=== PATIENT | female | born 1940 | race Caucasian/White ===

== ENCOUNTER 2021-03-13 21:01 | Inpatient (IN) | payer OTHER ==
[~2021-03-13] VITALS: Ht 180.3 cm; Wt 68.9 kg
[~2021-03-13 21:01] MED LIST: ALBUTEROL2.5 MG/3 M INH; ALLEGRA ALLERG180 MG PO; AMOX TR-K CLV1 EAC4 PO; CALTRATE 600 +1 EACH PO; CO Q-10100 MG PO; DOCUSATE SODIU100 MG PO; ECOTRIN81 MG PO; ENTRESTO 24 MG1 EACH PO; FISH OIL 1,0001 EACH PO; FUROSEMIDE40 MG PO; GLUCOTROL5 MG PO; IMDUR ER TAB 3030 MG PO; KLONOPIN0.5 MG PO; LANTUS100 UNIT/1 SQ; LASIX TAB 20 MG20 MG PO; LASIX20 MG PO; LOPRESSOR 25 MG25 MG PO; LOPRESSOR50 MG PO; NITROSTAT0.3 MG SL; NOVOLIN 70100 UNIT/1 SQ; OZEMPIC0.25 MG/0. SC; SYNTHROID150 MCG PO; TOPROL XL100 MG PO; ZANTAC 150 MG150 MG PO; ZESTRIL30 MG PO; ZOLOFT100 MG PO
[2021-03-13 22:51] LABS: HEMOGLOBIN 9.2 gm/dl (12.3-15.3); RED BLOOD COUNT 3.05 M/UL (4.00-5.10)
[2021-03-13 23:21] LABS: WHITE BLOOD COUNT 1.1 K/UL (4.5-11.0)
[2021-03-13 23:24] LABS: BUN/CREATININE RATIO 18 (0-10)
[2021-03-14] MEDS ORDERED: MIRAPEX1 MG PO (04:45)
[2021-03-14] MEDS ORDERED: NEURONTIN400 MG PO (04:47)
[2021-03-14 05:05] LABS: HEMOGLOBIN 8.5 gm/dl (12.3-15.3); RED BLOOD COUNT 2.84 M/UL (4.00-5.10)
[2021-03-14 05:37] LABS: WHITE BLOOD COUNT 1.3 K/UL (4.5-11.0)
[2021-03-14 06:19] LABS: BUN/CREATININE RATIO 19 (0-10)
[2021-03-14] MEDS ORDERED: MIDODRINE HCL5 MG PO (09:11)
[2021-03-14] MEDS ORDERED: MIRALAX17 GM PO (09:11)
[2021-03-14] MEDS ORDERED: COMPAZINE5 MG PO (09:13)
[2021-03-14] MEDS ORDERED: POTASSIUM CHLO20 ME1 PO (09:14)
[2021-03-14] MEDS ORDERED: FARXIGA10 MG PO (09:14)
[2021-03-14] MEDS ORDERED: LIPITOR TAB 2020 MG PO (09:28)
[2021-03-14] MEDS ORDERED: COREG12.5 MG PO (12:20)
[2021-03-14] MEDS ORDERED: LANTUS SOL100 UNIT/1 SC (12:38)
[2021-03-14] MEDS ORDERED: ACYCLOVIR800 MG PO (17:08)
[2021-03-14] MEDS ORDERED: FLUCONAZOLE200 MG PO (17:09)
[2021-03-14] MEDS ORDERED: FUROSEMIDE40 MG PO (17:11)
[2021-03-14] MEDS ORDERED: ROPINIROLE HCL0.5 MG PO (17:12)
[2021-03-14] MEDS ORDERED: VITAMIN B-121000 MC2 SL (17:13)
[2021-03-14] MEDS ORDERED: NITROSTAT0.4 MG SL (17:34)
[2021-03-15 15:59] LABS: BUN/CREATININE RATIO 34 (0-10)
[2021-03-15 16:09] LABS: HEMOGLOBIN 7.9 gm/dl (12.3-15.3); RED BLOOD COUNT 2.7 M/UL (4.00-5.10)
[2021-03-15 16:52] LABS: WHITE BLOOD COUNT 0.9 K/UL (4.5-11.0)
[2021-03-16 05:47] LABS: HEMOGLOBIN 8.2 gm/dl (12.3-15.3); RED BLOOD COUNT 2.83 M/UL (4.00-5.10)
[2021-03-16 06:53] LABS: BUN/CREATININE RATIO 39 (0-10)
[2021-03-17 03:52] LABS: RED BLOOD COUNT 3.1 M/UL (4.00-5.10)
[2021-03-17 03:59] LABS: WHITE BLOOD COUNT 1.5 K/UL (4.5-11.0)
[2021-03-17 04:34] LABS: BUN/CREATININE RATIO 36 (0-10)
[2021-03-18 06:39] LABS: HEMOGLOBIN 8.4 gm/dl (12.3-15.3); RED BLOOD COUNT 2.92 M/UL (4.00-5.10)
[2021-03-18 07:11] LABS: WHITE BLOOD COUNT 1.2 K/UL (4.5-11.0)
[2021-03-18 07:29] LABS: BUN/CREATININE RATIO 29 (0-10)
[2021-03-18] MEDS ORDERED: LEVOFLOXACIN500 MG PO (11:13)
[2021-03-18] MEDS ORDERED: AUGMENTIN 875-1 EACH PO (11:13)
== END 2021-03-18 14:10 | DRG 834 ==
LOC: ER1 21:01 → M/S 03-14 00:36 → CDU 03-14 00:36 → M/S 03-14 02:15
PROVIDERS: Internal Medicine; Physician Assistant; ADMIT Internal Medicine
PROC: B24BZZZ Ultrasonography of Heart with Aorta (ICD-10-PCS; principal; 2021-03-17)
DX: C92.00 Acute myeloblastic leukemia, not having achieved remission (principal); I21.4 Non-ST elevation (NSTEMI) myocardial infarction; E87.0 Hyperosmolality and hypernatremia; I50.22 Chronic systolic (congestive) heart failure; D61.818 Other pancytopenia; J96.11 Chronic respiratory failure with hypoxia; E11.9 Type 2 diabetes mellitus without complications; I25.10 Atherosclerotic heart disease of native coronary artery without angina pectoris; I11.0 Hypertensive heart disease with heart failure; E03.9 Hypothyroidism, unspecified; F32.A Depression, unspecified; E87.6 Hypokalemia; J44.9 Chronic obstructive pulmonary disease, unspecified; Z20.822 Contact with and (suspected) exposure to COVID-19; E78.5 Hyperlipidemia, unspecified; R53.81 Other malaise; Z66 Do not resuscitate; I25.5 Ischemic cardiomyopathy; Z85.6 Personal history of leukemia; Z90.49 Acquired absence of other specified parts of digestive tract; Z98.51 Tubal ligation status; Z82.49 Family history of ischemic heart disease and other diseases of the circulatory system; Z87.891 Personal history of nicotine dependence; Z86.16 Personal history of COVID-19; Z79.82 Long term (current) use of aspirin; Z79.4 Long term (current) use of insulin; Z95.5 Presence of coronary angioplasty implant and graft
CPT/HCPCS: ECHO; 0240U; 36415; 36600; 71045; 72128; 72131; 72170; 80048; 80053; 80202; 81001; 82550; 82553; 82803; 82962; 83036; 83605; 83615; 83690; 83735; 83874; 83880; 84100; 84132; 84484; 85025; 87040; 93005; 93306; 94664; 94760; 96374; 96375; 97110-GP-CQ; 97116-GP-CQ; 97161; 97166; 97530; 99285; A6212; J0692; J0696; J1100; J1630; J2405; J3370; J3475; J7030; J7070; U0002